=== PATIENT | female | born 1965 | race Caucasian/White ===

== ENCOUNTER → 2017-06-22 | Outpatient (CLI) | payer BC ==
[~2017-06-22] MED LIST: AMBIEN CR12.5 MG PO; CYMBALTA60 MG PO; ESTRATEST TABL1 EACH; FENTANYL1 EAC1 TOP; GABAPENTIN300 MG PO; HALCION0.25 MG PO; IMITREX100 MG PO; IOPAMIDOL 370 MG/ML 200 ML INFUS..BTL INJ ONE; NEURONTIN300 MG PO; NORCO 10-325 T1 EACH PO; PANTOPRAZOLE SO40 MG PO; PERCOCET 10-321 EACH PO; SODIUM CHLORIDE 0.9% 50ML 50 ML ONE; TIZANIDINE HCL4 MG PO; VALIUM10 MG PO; XANAX2 MG PO; Z.0.CLONAZEPAM2 MG; Z.0.LEXAPRO10 MG; Z.0.NEURONTIN100 MG PO; Z.0.NORCO 10-325 T1; Z.0.SAVELLA50 MG; [UNRECOGNIZED DRUG - OTHER]
--- NOTE | 2017-06-22 10:34 | Diagnostic Imaging Report ---
PROCEDURE:CT CHEST WITH CONTRAST COMPARISON:Patients [facility], DX, CHEST 2 VIEWS, 02/22/2016, 14:56. INDICATIONS:Abnormal finding in lung cabral. TECHNIQUE: Routine protocol Volumetric CT chest after ministration of 100 mL Isovue 370 intravenous contrast. Multiplanar reformatted images. DLP: 433.25 FINDINGS: Lungs: The mild interstitial scar along the minor fissure, dependent aspect of the right lower lobe, and lingula. Otherwise, normal Pleura: Normal Airways: Normal Lymph nodes: Normal Pulmonary arteries: Normal caliber Thoracic aorta: Normal Heart and pericardium: Normal Subdiaphragmatic organs: Intrahepatic bile duct dilation. Cholecystectomy. Skeleton: Intact. Soft tissues: Normal CONCLUSION: No acute abnormality. Dictated by: Brian Yoo M.D. on 06/22/2017 at 10:34 Electronically approved by: Brian Yoo M.D. on 06/22/2017 at 10:34
== END ==
LOC: CT 09:22
PROVIDERS: ATTEND Family Medicine
DX: R91.8 Other nonspecific abnormal finding of lung field (principal)
CPT/HCPCS: 71260; Q9967

== ENCOUNTER 2017-07-22 16:16 | Emergency (ER) | payer BC ==
[~2017-07-22] VITALS: Ht 175.3 cm; Wt 77.1 kg
[~2017-07-22 16:16] MED LIST changes: -IOPAMIDOL 370 MG/ML 200 ML INFUS..BTL INJ ONE; -SODIUM CHLORIDE 0.9% 50ML 50 ML ONE
--- OUTSIDE RECORDS SUMMARY | 2017-07-22 16:21 | XMS REPORT | Clinical Summary ---
Author Author [facility] Address Unknown Phone Unavailable Care Team Providers Care Plastics Tooling Engineer Name Role Phone PCP Unavailable Allergies Not on File Current Medications Not on file Active Problems Not on file Social History Tobacco Use Types Packs/Day Years Used Date Never Assessed Sex Assigned at Date Recorded Not on file Last Filed Vital Signs Not on file Plan of Treatment Not on file Results Not on fileafter 07/21/2016
--- OUTSIDE RECORDS SUMMARY | 2017-07-22 16:21 | XMS REPORT ---
Author Author [facility] Address Unknown Phone Unavailable Care Team Providers Care Stewardess Supervisor Name Role Phone NISREEN SERNA Unavailable Unavailable Problems This patient has no known problems. Allergies, Adverse Reactions, Alerts This patient has no known allergies or adverse reactions. Medications This patient has no known medications. Results Test Description Test Time Test Comments Text Results Atomic Results Result Comments CT CHEST [place] [address] Patient Name: CHLOE WESTFALL MR #: [id number] : 1965 Age/Sex: 52/F Req #: [id number] Adm Physician: Ordered by: NISREEN SERNA DO Report #: [id number] Location: CT Room/Bed: Procedure: [id number] CT/CT CHEST W Exam Date: 06/22/17 Exam Time: 1006 REPORT STATUS: Signed PROCEDURE: CT CHEST WITH CONTRAST COMPARISON: [facility], , CHEST 2 VIEWS, 02/22/2016, 14:56. INDICATIONS: Abnormal finding in lung cabral. TECHNIQUE: Routine protocol Volumetric CT chest after ministration of 100 mL Isovue 370 intravenous contrast. Multiplanar reformatted images. DLP: 433.25 FINDINGS: Lungs: The mild interstitial scar along the minor fissure, dependent aspect of the right lower lobe, and lingula. Otherwise, normal Pleura: Normal Airways: Normal Lymph nodes: Normal Pulmonary arteries: Normal caliber Thoracic aorta: Normal Heart and pericardium: Normal Subdiaphragmatic organs: Intrahepatic bile duct dilation. Cholecystectomy. Skeleton: Intact. Soft tissues: Normal CONCLUSION: No acute abnormality. Dictated by: Rm Yoo M.D. on at 10:34 Electronically approved by: Rm Yoo M.D. on 06/22/2017 at 10:34 Dictated By: RM YOO MD [id number] Transcribed By: CHULA on 06/22/17 1034 COPY TO: NISREEN SERNA DO
[2017-07-22] MEDS ORDERED: ASPIRIN 81 MG CHEW TAB PO ONE (16:30)
--- OUTSIDE RECORDS SUMMARY | 2017-07-22 16:33 | XMS REPORT | Clinical Summary ---
Author Author [facility] Address Unknown Phone Unavailable Care Team Providers Care Echo Tech Name Role Phone PCP Unavailable Allergies Not on File Current Medications Not on file Active Problems Not on file Social History Tobacco Use Types Packs/Day Years Used Date Never Assessed Sex Assigned at Date Recorded Not on file Last Filed Vital Signs Not on file Plan of Treatment Not on file Results Not on fileafter 07/21/2016
[2017-07-22 16:43] LABS: BASOPHILS % 0.3 % (0.0-1.0); EOSINOPHILS # (AUTO) 0.2 (0.0-0.4); EOSINOPHILS % 1.4 % (0.0-6.0); HEMATOCRIT 45.3 % (34.2-44.1); HEMOGLOBIN 15.4 g/dL (12.0-16.0); LYMPHOCYTES % 33.6 % (18.0-39.1); MEAN CORPUSCULAR HEMOGLOBIN 29.3 pg (28-32); MEAN CORPUSCULAR VOLUME 86.1 fL (81-99); MONOCYTES # (AUTO) 0.7 (0.2-0.8); MONOCYTES % 5.5 % (4.4-11.3); NEUTROPHILS # (AUTO) 7.1 (2.1-6.9); NEUTROPHILS % 58.9 % (38.7-80.0); PLATELET COUNT 423 x10e3/uL (140-360); RED BLOOD COUNT 5.26 x10e6/uL (3.6-5.1); RED CELL DISTRIBUTION WIDTH 13.2 % (11.7-14.4)
[2017-07-22 16:55] LABS: INR 1.01; PROTHROMBIN TIME 12.5 seconds (11.9-14.5)
[2017-07-22 16:56] LABS: PARTIAL THROMBOPLASTIN TIME 29.5 seconds (23.8-35.5)
[2017-07-22 17:04] LABS: ALANINE AMINOTRANSFERASE 22 IU/L (0-55); ALBUMIN 4.1 g/dL (3.5-5.0); ALBUMIN/GLOBULIN RATIO 0.9 (0.8-2.0); ALKALINE PHOSPHATASE 77 IU/L (40-150); ANION GAP 13.5 mmol/L (8-16); BLOOD UREA NITROGEN 11 mg/dL (7-26); BUN/CREATININE RATIO 14 (6-25); CALCIUM 10.5 mg/dL (8.4-10.2); CARBON DIOXIDE 28 mmol/L (22-29); CHLORIDE 100 mmol/L (98-107); CREATININE, SERUM 0.81 mg/dL (0.57-1.11); EST GLOMERULAR FILTRATION RATE > 60 ML/MIN (60-); GLUCOSE 103 mg/dL (74-118); POTASSIUM 3.5 mmol/L (3.5-5.1); SODIUM 138 mmol/L (136-145)
[2017-07-22 17:11] LABS: CREATINE KINASE 117 IU/L (29-168)
--- NOTE | 2017-07-22 17:29 | Diagnostic Imaging Report ---
EXAM: XR CHEST 1 VIEW DATE: 07/22/2017 4:21 PM INDICATION: Pain COMPARISON: None FINDINGS: Lines and Tubes: None Heart and Mediastinum: No acute cardiomediastinal findings. Lungs and Pleura: No significant pleural effusion, pneumothorax, or focal consolidation. Bones and Soft Tissues: No acute findings. IMPRESSION: 1. No acute cardiopulmonary findings. Signed by: Dr. Larry Varela MD on 07/22/2017 5:25 PM
[2017-07-22 18:20] VITALS: BP 127/92
== END 2017-07-22 19:04 | disposition home or self-care (01) ==
LOC: ER 16:30
DX: R07.89 Other chest pain (principal); M79.7 Fibromyalgia
CPT/HCPCS: 36415; 71045; 80053; 82550; 82553; 84484; 85025; 85610; 85730; 93005; 99284

== ENCOUNTER 2020-05-12 06:49 | Emergency (ER) | payer BC ==
[~2020-05-12] VITALS: Ht 175.3 cm; Wt 77.1 kg
[2020-05-12] MEDS ORDERED: KETOROLAC TROMETHAMINE 30 MG/ML VIAL IM STA (07:03)
[2020-05-12] MEDS ORDERED: HYDROCODONE/APAP 5MG-325MG TAB PO ONE (07:15)
== END 2020-05-12 08:15 | disposition home or self-care (01) ==
LOC: ER 07:00
DX: M25.561 Pain in right knee (principal); M79.7 Fibromyalgia
CPT/HCPCS: 73562; 99283; J1885